=== PATIENT | female | born 1990 | race Caucasian/White ===

== ENCOUNTER 2023-10-10 15:27 | Inpatient (IN) | payer OTHER, SELFPAY ==
[2023-10-07 19:22] VITALS: BP 186/112
[2023-10-07 19:38] VITALS: BMI 50.5
[2023-10-07 19:41] VITALS: BP 158/82
[2023-10-07 20:00] VITALS: BP 145/81
[2023-10-07 20:04] LABS: % Basophils 0.2 % (0-2); % Immature Granulocytes 0.4 % (0-0.5); % Lymphocytes 11.7 % (20.5-51.1); % Neutrophils 80.7 % (42.2-75.2); Absolute Eosinophils 0.1 10^3/uL (0-0.7); Absolute Immature Granulocytes 0.1 10^3/uL (0-0.05); Absolute Lymphocytes 1.5 10^3/uL (1.2-3.4); Absolute Monocytes 0.8 10^3/uL (0.1-0.6); Absolute Neutrophils 10.3 10^3/uL (1.4-6.5); Hematocrit 31.1 % (37.0-47.0); Mean Corp Hgb Conc. 35.4 g/dL (33.0-37.0); Mean Corpuscular Hgb 30.1 pg (27.0-31.0); Mean Corpuscular Volume 85.2 fL (81.0-99.0); Mean Platelet Volume 9.5 fL (7.4-10.4); Nucleated Red Blood Cells % 0 %; Platelet Count 241 10^3/uL (130-400); Red Blood Cell Count 3.65 10^6/uL (4.20-5.40); Red Cell Dist. Width 12.4 % (11.5-14.5); White Blood Cell Count 12.8 10^3/uL (4.8-10.8)
[2023-10-07 20:05] LABS: Urine Albumin Trace (Neg - Trace); Urine Bilirubin Negative (Negative); Urine Character Clear (Clear); Urine Color Yellow; Urine Glucose Negative (Negative); Urine Ketone 3+ (Negative); Urine Leukocyte 2+ (Negative); Urine Nitrite Negative (Negative); Urine Occult Blood 2+ (Negative); Urine Specific Gravity 1.025 (<1.030); Urine Urobilinogen Negative (Neg - 1+)
[2023-10-07 20:11] LABS: Urine Squamous Cell >30 /LPF (Few); Urine White Cell 30-40 /HPF (0-5)
[2023-10-07 20:12] LABS: Urine Bacteria Moderate (Negative); Urine Red Blood Cell None Seen /HPF (0-2)
--- NOTE | 2023-10-07 20:43 | ED.GENMED ---
History of Present Illness
General
Chief Complaint: Back Pain
Source: patient
Exam Limitations: none
Time Seen by Provider: 10/07/23 19:29
Nursing documentation reviewed up to this point in time: agreed with
History of Present Illness
History of Present Illness:
33-year-old female nondrinker non-smoker prior LEEP procedure no prior abdominal surgery on control presents with back pain for about a week worse with eating associated with shortness of breath, upper abdominal pain, has really been noted you
to drink very much, no vomiting,
Past History
Past History
ED Past Medical History: None
ED Past Surgical History: Gynecological; Negative Bowel resection, Cardiac or Cholecystectomy
Social History
Tobacco: Non-smoker
Alcohol: None
Drug: None
Personal:
Living: with family
Employment: Employed
Family History
Family History: Negative CAD
Review of Systems
Review of Systems
All Other Systems: ROS reviewed and negative except as documented in HPI and ROS
Constitutional: Denies fever or fatigue
EENT: Reports no symptoms
Respiratory: Reports trouble breathing
ABD/GI: Reports abdominal pain
Musculoskeletal: Reports no symptoms
Phy Exam
Physical Exam
Physical Exam:
Physical Exam
General: 33 female looks uncomfortable
Neck: No jaundice
Heart: s1/s2 regular rate and rhythm, no murmur. equal radial pulses.
Lungs: no acute respiratory distress. clear bilaterally
Abdomen: Positive tenderness in the right upper abdomen
Neuro: alert and oriented. no focal neurological deficits
Skin: no rash
Psychiatric: well kept. interactive and cooperative
Extremities: no edema.
Course
Orders/Labs/Results
Orders:
Orders
10/07/23 19:42
Electrocardiogram (*1) Urgent
Reason for Study: Chest Pain
10/07/23 19:43
EKG- Treatment ONCE
Test Result ONCE
10/07/23 19:52
Complete Blood Count/With Diff Urgent
Urinalysis Reflex To Culture Urgent
Date Specimen was Collected: 10/07/23
Time Specimen was Collected: 19:43
Urine Microscopic Reflex Cult Urgent
Urine Culture Urgent
FLASH Source: U
Specimen Description:
Date Specimen was Collected: 10/07/23
Time Specimen was Collected: 19:43
10/07/23 20:15
CR Chest - 2 Views Urgent
Comment:
Reason For Exam: sob
US Periph Venous LOWER Ext RT Urgent
Comment:
Reason For Exam: swelling
10/07/23 20:16
Ketorolac [Toradol] 30 mg IV NOW STA
US Abdomen Complete/Upper Urgent
Comment:
Reason For Exam: pain
10/07/23 20:38
Comprehensive Metabolic Panel Urgent
D-Dimer Urgent
HCG, Serum Qualitative Screen Urgent
Lipase Urgent
Troponin I Urgent
10/07/23 22:29
HYDROmorphone [Dilaudid] 1 mg IV NOW STA
10/07/23 22:31
Ondansetron Injectable [Zofran] 4 mg IV NOW STA
10/07/23 22:32
CT Chest Pe Study Urgent
Comment:
Reason For Exam: spb ddimer up
Abnormal Lab Results
10/07/23 10/07/23
19:52 20:38
WBC 12.8 H 10^3/uL
(4.8-10.8)
RBC 3.65 L 10^6/uL
(4.20-5.40)
Hgb 11.0 L g/dL
(12.0-16.0)
Hct 31.1 L %
(37.0-47.0)
Abs Immat Gran (auto) 0.1 H 10^3/uL
(0-0.05)
Absolute Neuts (auto) 10.3 H 10^3/uL
(1.4-6.5)
Absolute Monos (auto) 0.8 H 10^3/uL
(0.1-0.6)
Neutrophils % 80.7 H %
(42.2-75.2)
Lymphocytes % 11.7 L %
(20.5-51.1)
D-Dimer 0.58 H ug/mlFEU
(0.00-0.50)
Chloride 110 H mmol/L
(98-107)
Glucose 113 H mg/dl
(70-99)
Urine Ketones 3+ A
(Negative)
Ur Occult Blood Reflex 2+ A
(Negative)
Leukocyte Esterase Rfl 2+ A
(Negative)
Urine WBC (Reflex) 30-40 A /HPF
(0-5)
Urine Bacteria (Reflex) Moderate A
(Negative)
10/07/23 19:52
10/07/23 20:38
Vital Signs
Initial and Last Documented VS:
Initial Vital Signs
Temp Pulse Resp BP Pulse Ox
98.2 F 98 24 186/112 100
10/07/23 19:22 10/07/23 19:22 10/07/23 19:22 10/07/23 19:22 10/07/23 19:22
Last Documented Vital Signs
Temp Pulse Resp BP Pulse Ox
98.2 F 64 10 131/75 98
10/07/23 19:22 10/07/23 23:00 10/07/23 23:00 10/07/23 23:00 10/07/23 23:00
MDM/Problems Addressed
Differential Diagnosis Includes:
Biliary colic pancreatitis DVT PE
MDM/Problems Addressed:
Abdominal pain chest pain
Chronic conditions affecting care:
Contraceptive use obesity
Acute Exacerbation and/or Progression of Chronic Illness:
Oral contraceptive obesity
*Radiology
Radiology exam reviewed: radiology read reviewed
*Pulse Oximetry
Patient hypoxic: no
*EKG
Interpreted by ED Provider?: Yes
Interpretation: abnormal
Comparison EKG: no comparison EKG present
Heart Rate: 78
Rate: normal
Rhythm: sinus
QRS Pattern: normal QRS
Ischemia: no ischemia
*Bandoleer Packer Interpretation
Rate: normal
Interpretation: normal
Heart Rate: 78
Rhythm: sinus
*Critical Care Note
Total Time (30-74mins, 75-104mins- exclusive of procedures): Not Applicable
Data Reviewed
Source: patient
Update Note
Update Note:
Update workup noted on reevaluation persistent pain in her right upper abdomen, ultrasound noted suspect biliary colic acute calculus cholecystitis source of her symptoms, D-dimer is up we will check CT to rule that out also get another review of
her right upper quadrant potentially will start on analgesics, likely admission
ED Attending Note
-
Portions of this chart may have been created with voice recognition software.� Occasional wrong word or��sound alike� substitutions may have occurred due to the inherent limitations of voice recognition software.
Discharge Plan
Departure
Prescriptions:
No Action
Oral Contraceptives
1 tab PO DAILY
Referrals:
NONE,* [Family Provider] -
Interventions
Interventions:
*Risk Screen - Suicide Last Done: 10/07/23 19:22
*General Assessment Last Done: 10/07/23 19:38
*Neglect/Abuse Screening Last Done: 10/07/23 19:22
ED- Fall Risk Assessment Last Done: 10/07/23 19:38
*ED COVID-19 Vaccine History Last Done: 10/07/23 19:38
ED- Cardiac Assessment Last Done: 10/07/23 19:39
ED-Musculoskeletal Assessment Last Done: 10/07/23 19:39
ED- Pulmonary Assessment Last Done: 10/07/23 19:39
Discharge Date and Time
Print Language: BELARUSIAN
[2023-10-07] MEDS: TORADOL 30 MG IV (21:22)
[2023-10-07 21:36] VITALS: BP 147/86
[2023-10-07 21:55] LABS: D-Dimer 0.58 ug/mlFEU (0.00-0.50)
[2023-10-07 22:01] VITALS: BP 128/80
[2023-10-07 22:09] LABS: ALT (SGPT) 24 U/L (0-35); AST (SGOT) 24 U/L (14-36); Alkaline Phosphatase 83 U/L (38-126); Blood Urea Nitrogen 14 mg/dl (7-17); Calcium 9.6 mg/dl (8.4-10.2); Carbon Dioxide 24 mmol/L (22-30); Chloride 110 mmol/L (98-107); Estimated Creatinine Clearance > 125 ml/min; Glucose 113 mg/dl (70-99); Lipase 34 U/L (23-300); Potassium 4.1 mmol/L (3.5-5.1); Sodium 140 mmol/L (135-145); Total Bilirubin 0.5 mg/dl (0.2-1.3); Total Protein 6.6 g/dl (6.3-8.2); eGFR > 60.00
[2023-10-07 22:11] LABS: HCG, Serum Qualitative Screen Negative
[2023-10-07 22:23] LABS: Troponin I < 0.012 ng/ml
[2023-10-07 23:00] VITALS: BP 131/75
[2023-10-07] MEDS: ZOFRAN 4 MG IV (23:08)
[2023-10-07] MEDS: DILAUDID 1 MG IV (23:08)
[2023-10-08] VITALS (13 sets, daily range): BP systolic 25–159; BP diastolic 61–96; BMI 49.0
--- NOTE | 2023-10-08 00:52 | HPS.HSE ---
Addendum entered and electronically signed by Andrea Cervantes MD 10/08/23 10:40:
I saw and examined the patient independently.
The Flight Simulator Teacher's note was reviewed and I agree with the note, assessment and plan except where noted below.
Comment: 33-year-old female with morbid obesity (BMI 49) presents with a 1 week history of right upper quadrant abdominal pain. Imaging, blood work, exam all consistent with acute cholecystitis.
Will plan for a laparoscopic cholecystectomy with cholangiogram in the OR today.
N.p.o., IV fluids, IV antibiotics.
Risks/Benefits/Alternatives, expected postoperative course and possible complications (bleeding, infection, injury to surrounding structures, acute/chronic pain) discussed at length. Patient wishes to proceed with surgery. All questions answered.
Consent obtained.
I spent roughly 60 minutes in total for the care of this patient today including direct patient care and counseling, reviewing labs, imaging, coordination of care, as well as documentation.
Original Note:
Family Physician
-
Family Physician: * NONE
Chief Complaint
-
Abdominal pain
History of Present Illness
a 33 year old female with prior LEEP procedure 15 years ago, no other abdominal surgeries�and currently on control. Present in ER today with a complain of upper abdominal pain and back pain. Symptoms started one week ago with right
upper�abdominal pain after eating, associated with nausea, sob and back pain. Pain increased with movement and patient can not get in comfortable position. Described her abdominal pain as pressure pain and back pain as sharp pain upper and middle
back. Patient took ibuprofen in home with no relief. Denies vomiting, diarrhea, constipation, urinary symptoms, chills, or any other symptoms. �
Medical History
Past Medical History
Past Medical History: Reports None
Past Surgical History: Reports Gynocological (LEEP procedure )
Social History
Tobacco: Non-smoker
Alcohol: None
Drug: None
Personal:
Living: With Family
Employment: Employed
Family History
Family History: Not pertinent
Allergies / Home Medications
Allergies reflects when Allergies were last updated in [email or web address].
Home Medications with original date entered in [email or web address]
Allergy/Medication List:
Patient Allergies
Allergy/AdvReac Type Severity Reaction Status Date / Time
No Known Allergies Allergy Verified 10/07/23 19:25
Home Medications Table - record
�Medication �Instructions �Recorded �Confirmed
Oral Contraceptives 1 tab PO DAILY 10/07/23
Review of Systems
-
History Source: Patient
A 12 point ROS was completed and negative except as noted: Yes
Constitutional: Reports No Symptoms
Respiratory: Reports Trouble Breathing (Sob)
Cardiac: Reports No Symptoms
Abdomen/GI: Reports Abdominal Pain (Epigastric and RT upper abdominal pain) and Nausea
: Reports No Symptoms
Musculoskeletal: Reports No Symptoms
Skin: Reports No Symptoms
Neurological: Reports No Symptoms
Physical Exam
Vital Signs
Vital Signs
Temp Pulse Resp BP Pulse Ox
98.2 F 74 19 149/82 97
10/07/23 19:22 10/08/23 00:45 10/08/23 00:45 10/08/23 00:00 10/08/23 00:45
Physical Exam
General: No Apparent Distress
Respiratory: Clear
Cardiac: Regular Rhythm
GI: Soft, Normal Bowel Sounds and Tender (Epigastric and RT upper abdominal pain )
Musculoskeletal: No Edema
Neuro: Awake and AO x 3
Laboratory Results
-
10/07/23 19:52
10/07/23 20:38
Laboratory Results
Total Bilirubin 0.5 mg/dl (0.2-1.3) 10/07/23 20:38
AST 24 U/L (14-36) 10/07/23 20:38
ALT 24 U/L (0-35) 10/07/23 20:38
Alkaline Phosphatase 83 U/L (38-126) 10/07/23 20:38
Troponin I < 0.012 ng/ml 10/07/23 20:38
Lipase 34 U/L (23-300) 10/07/23 20:38
Data Reviewed
-
Ultrasound: Discussed with Patient
Impression/Plan
-
Abdominal ultrasound shows gallbladder with sludge and stones ad well as mild thickness. Neg sonographic Connors`s sign. No finding to suggest biliary tract dilatation.
WBC 12.8 ��
IMPRESSION:
Acute Calculous Cholecystitis/ Biliary colic
PLAN:
Admit/ observation/med-surg Dr Villanueva (general surgery)
NPO�
IVF�
Abx Zosyn�
analgesics as needed
antiemetics as needed�
SOB with inspiration
Elevated D dimer------> CTPA is neg
Troponin is neg
Chest x-ray with No acute cardiopulmonary process.
DVT prophylaxis Lovenox sq�
Code status Full code
[2023-10-08] MEDS: DILAUDID 0.5 MG IV ×5 (01:55→23:57)
[2023-10-08] MEDS: ZOSYN 50 IV ×3 (01:55→20:36)
[2023-10-08] MEDS: FLUSH (NSS) 1 FLUSH IV (01:56)
[2023-10-08] MEDS: NSS 1000 IV ×2 (02:52→20:39)
--- NOTE | 2023-10-08 02:59 | PTCARENOTE ---
02:10 pt admit from ER, aaox3, RAC with abt infusing, NSS at 80ml/hr. Pt vs stable, denies abd pain at this time, diet and care plan reviewed, oriented to unit.
[2023-10-08] MEDS: DILAUDID 0.25 MG IV (04:00)
--- NOTE | 2023-10-08 09:00 | W.PN.GS2 ---
Addendum entered and electronically signed by Andrea Cervantes MD 10/08/23 10:41:
See addendum in H&P.
Agree, 33-year-old female with acute cholecystitis. Plan for or today.
Original Note:
Today's Communication / Plan
-
Plan for laparoscopic cholecystectomy
Assessment / Plan
-
33-year-old female presented with acute upper abdominal pain with intermittent back pain.
Abdominal ultrasound: Gallbladder with sludge and stones as well as mild wall thickness. Negative sonographic Connors's sign
Acute cholecystitis
-N.p.o.
-IV Zosyn
-IV fluids
-Laparoscopic cholecystectomy plan for today
Discussed the procedure with patient at bedside. Reviewed indications for cholecystectomy. Patient in agreement to proceed with surgery for definitive management. Laparoscopic cholecystectomy was reviewed in detail including the operative
technique and and potential operative findings with their management. Discussed benefits of surgery and risks such as but not limited to bleeding, infectious or wound related complications, iatrogenic injury to surrounding viscera.
We discussed the variable timeframe of postoperative recovery and hospitalization pending operative findings. Patient verified understanding.
Time Spent
Total Time Spent with Patient (in minutes): 15
Subjective Data
-
Date of Service: October 08, 2023
Interval events: Continues to have right upper quadrant abdominal pain. Denies nausea/vomiting
Objective Data
-
Intake and Output
10/07/23 10/08/23 10/09/23
06:59 06:59 06:59
Intake Total 400 / 400
Balance 400 / 400
Intake:
IV fluids (Total) 400 / 400
Other:
Number of approximated LARGE 2
amounts of urine
Vital Signs
Temp Pulse Resp BP Pulse Ox
98.8 F 74 18 140/77 97
10/08/23 07:30 10/08/23 07:30 10/08/23 07:30 10/08/23 07:30 10/08/23 07:30
Lab Results
10/07/23 19:52
10/07/23 20:38
Calcium 9.6 mg/dl (8.4-10.2) 10/07/23 20:38
Total Bilirubin 0.5 mg/dl (0.2-1.3) 10/07/23 20:38
AST 24 U/L (14-36) 10/07/23 20:38
ALT 24 U/L (0-35) 10/07/23 20:38
Alkaline Phosphatase 83 U/L (38-126) 10/07/23 20:38
Total Protein 6.6 g/dl (6.3-8.2) 10/07/23 20:38
Albumin 4.0 g/dl (3.5-5.0) 10/07/23 20:38
Physical Exam
-
General: Comfortable
Abdomen: Soft, tenderness on right upper abdomen and epigastric region, obese
--- NOTE | 2023-10-08 11:03 | CM ---
CM following re: discharge planning.
Reviewed pt's chart, met with pt.
Pt is a 33 year old female, admitted with OBS status and primary dx of Acute Cholecystitis. OBS status explained to the pt, OBS letter signed, placed on chart, pt has a copy.
Pt reports she lives with and 2 children in a 2SH, 2 steps to enter. Pt described herself as independent in all areas [place] [employer], drives, works.
Per Surgery, Laparoscopic cholecystectomy plan for today.
PCP: Pt stated she does not have PCP, declined to have a list of PCP offices.
Pharmacy: [facility].
D/C plan: home with anticipated no needs. to transport at discharge.
CM will follow with discharge plan updates as hospitalization progresses
--- NOTE | 2023-10-08 13:12 | W.SUR.PREOP ---
Pre-Operative Surgical Note
-
I have examined this patient prior to the performance of the scheduled procedure.
The patient's condition is unchanged from the time of the current History and
Physical and the patient is able to undergo the scheduled procedure.
--- NOTE | 2023-10-08 16:08 | W.IMMPOSTOP ---
Surgical Immed Post Op Note
-
Primary Surgeon: Andrea Cervantes MD
Assisting Surgeon: None
Pre-op Diagnosis: Acute cholecystitis
Post-op Diagnosis: Gangrenous cholecystitis
Procedure Performed: Laparoscopic cholecystectomy with cholangiogram
Anesthesia Type: General
Specimen / Cultures: Gallbladder and contents
Estimated Blood Loss: 31 cc
Complications: None
Operative Findings: Gangrenous cholecystitis with distended and thickened gallbladder wall. The gallbladder was evacuated using a suction needle. We did attempt to dissect the hepatocystic triangle but due to the inflammation it was difficult to
identify the true plane so we elected to convert to a top-down cholecystectomy. The gallbladder was entered with evacuation of thick somewhat purulent looking bile. We were able to dissect the gallbladder down to the neck and after removing all
the stones, the ostium of the cystic duct was identified and cannulated with a cholangiocatheter that it been introduced through a separate stab incision using a Melvin Quispe. Cholangiogram was performed which showed normal biliary anatomy and
no distal filling defects. The cystic duct/infundibulum was ligated with a 0 PDS Endoloop and the gallbladder was divided above this. The gallbladder and stones were removed in 2 separate Endo Catch bags through the 12 mm epigastric port. A 19
Luxembourgish round Js drain was introduced through the right lateralmost port and secured to the skin with a 2-0 nylon.
POST OP PLAN:
Imaging: None
Labs: Routine AM
Diet: clears
Analgesia: Tylenol 650mg q6 Zev, Lizzette 5mg q6 PRN, Dilaudid 0.5mg q2h PRN
Neuro/vascular checks: q4h
AC/AP: Hold Therapeutic AC, Ok for DVT PPx
Activity: Ad Angie
Wound/Incisions/Drains: Routine, IAM to bulb suction
Abx: Anticipate antibiotics x 4 days.
Dispo: RNF, anticipate discharge home at the earliest 10/10/2023.
[2023-10-08] MEDS: ZOSYN IV (17:32)
--- NOTE | 2023-10-08 18:19 | PTCARENOTE ---
Received patient from PACU via bed around 1715 in stable condition. Patient c/o pain 10/12. Dilaudid 0.5 mg given as ordered. 5 lap sites with surgical adhesive JANES CDI. Right IAM drain with serosanguineous drainage. IS encouraged. Call perez in reach.
Patient DTV.
--- NOTE | 2023-10-08 19:45 | OR.RPT ---
Operative Report
Operative Report
Patient Name: Su Osorio
: 1990
Date of Operation: 10/08/2023
Preoperative Diagnosis: Acute cholecystitis
Postoperative Diagnosis: Gangrenous cholecystitis
Procedure(s):
Laparoscopic Cholecystectomy with Cholangiogram
Surgeon(s):
Dr. Cervantes
Metal Sprayer Production(s):
JO Bautista
Anesthesia: General
Estimated Blood Loss: 31 cc
Urine Output: None
Drains/Lines/Implants: 19 Belgian round Js drain in the gallbladder fossa
Specimens:
1. Gallbladder and contents
HPI/Surgical Indications:
This is a 33-year-old female with morbid obesity who presents with a 1 week history of postprandial right upper quadrant abdominal pain. Exam, labs and imaging are consistent with acute cholecystitis. Risks/Benefits/Alternatives were discussed at
length, and the patient agreed to proceed with surgery.
Operative Findings: Gangrenous cholecystitis with distended and thickened gallbladder wall. The gallbladder was evacuated using a suction needle. We did attempt to dissect the hepatocystic triangle but due to the inflammation it was difficult to
identify the true plane so we elected to convert to a top-down cholecystectomy. The gallbladder was entered with evacuation of thick somewhat purulent looking bile. We were able to dissect the gallbladder down to the neck and after removing all
the stones, the ostium of the cystic duct was identified and cannulated with a cholangiocatheter that it been introduced through a separate stab incision using a Melvin Quispe. Cholangiogram was performed which showed normal biliary anatomy and
no distal filling defects. The cystic duct/infundibulum was ligated with a 0 PDS Endoloop and the gallbladder was divided above this. The gallbladder and stones were removed in 2 separate Endo Catch bags through the 12 mm epigastric port. A 19
Belgian round Js drain was introduced through the right lateralmost port and secured to the skin with a 2-0 nylon.
Procedure Description:
The patient was brought to the Operating Room and placed in the supine position with one the arms out and a footboard placed. Following uneventful induction of general endotracheal anesthesia, an orogastric tube was placed. The abdomen was prepped
and draped in the usual sterile fashion. A timeout was performed confirming the procedure, consent, and that IV antibiotics were infused and sequential compression devices were confirmed to be on. The abdomen was entered using a left subcostal
Veress technique which required 1 pass followed by a right upper quadrant 5 mm Optiview trocar. Pneumoperitoneum to 15 mmHg pressure was obtained without difficulty and we confirmed that no injury had occurred during our entry. The patient was
positioned in steep reverse Trendelenberg and rotated with the right side up slightly. Two 5mm trocars were then placed along the right subcostal margin, followed by pulmonary port in the epigastrium. The gallbladder was notably distended so was
emptied using a decompressing needle through the fundus of the gallbladder with evacuation of bile/hydrops before A locking grasping forceps was placed on the fundus of the gallbladder where it was then retracted cephalad and to the right. There
was significant adhesions over the anterior plate of the gallbladder particularly in the lower third, these were lysed using electrocautery and blunt dissection as we moved towards the presumed hepatocystic triangle the tissues encountered were very
thick and inflamed and was difficult to identify any real safe plane of dissection. At this point we elected to convert to a top-down cholecystectomy. The gallbladder was entered and a significant amount of bile was evacuated. Once we are on the
true wall of the gallbladder we were able to extend this down towards the a infundibulum. The back wall of the gallbladder was opened and the there was several very large mixed/brown gallstones. In order to not lose these, I passed a specimen bag
into the abdomen and tediously passed each stone into this for collection. I also placed a 4 x 4 into the gallbladder fossa to help collect any loose stones and debris. We continued our dissection proximally on the gallbladder till we were able to
identify the cystic duct lumen. We also identified the cystic artery which was cauterized and ligated using a laparoscopic bipolar energy device. I then passed a cholangiocatheter through a separate right upper quadrant stab incision using a
Melvin Quispe device. I then threaded the catheter through the cystic duct and clamped in place using a procedure grasper. A C-arm was draped and brought into the field. An intra-operative cholangiogram was performed and was noted to have:
No filling defects in the biliary tree
No significant biliary dilation
Brisk flow of contrast into the duodenum
Normal biliary anatomy
The catheter was then removed and the cystic duct was controlled with a 0 PDS Endoloop as distally as we could. Again, given how inflamed the cystic triangle was I did not feel any further dissection would be safe. After feeling confident that the
duct had been obliterated the remaining cuff of the gallbladder was divided using the bipolar energy device and the gallbladder with 3 remaining gallstones was placed into a separate Endo Catch bag. The specimens were then removed through the
epigastric 12 port. There was obviously significant spillage of bile and stones during this case though all the stones appeared fairly large and were removed. The right upper quadrant was then flooded with irrigation and suctioned until clear.
Hemostasis was achieved. A 19 Belgian round Js drain was then introduced through the right most lateral laparoscopic port and passed along the right colic gutter and underneath the right lobe of the liver across our surgical bed. This was
secured at the skin with a 2-0 nylon suture. After ensuring our specimen as well as our 4 x 4 Ray-Gabe were removed the 12 mm port was closed using a 0 PDS [id number] with the help of a Melvin Quispe device. The gallbladder bed was inspected
and excellent hemostasis was assured. There was no sign of any bile leakage. All remaining trocars were then removed and the pneumoperitoneum was evacuated. All trocar sites were closed at the skin level using 4-0 Monocryl followed by Dermabond.
Overall, the patient tolerated the procedure well and was taken to the Recovery Room postoperatively in stable condition.
I was the attending physician and performed the procedure with assistance from the EXTERMINATOR TERMITE above. I was present for all portions of the case
Andrea Cervantes MD
[2023-10-08] MEDS: LOVENOX 40 MG SC (20:35)
[2023-10-09] MEDS: ZOSYN 50 IV ×4 (01:08→20:22)
[2023-10-09 03:03] VITALS: BP 141/74
[2023-10-09] MEDS: NSS 1000 IV (03:49)
[2023-10-09 07:41] VITALS: BP 121/69
--- NOTE | 2023-10-09 08:17 | W.PN.GS2 ---
Addendum entered and electronically signed by Andrea Cervantes MD 10/09/23 16:05:
I saw and examined the patient independently.
The resident's note was reviewed and I agree with the note, assessment and plan except where noted below.
Comment: 33-year-old female postoperative day 1 status post laparoscopic cholecystectomy for gangrenous cholecystitis. IAM with serosanguineous output. Blood work reassuring though hemoglobin 9.6 from 11.
Okay for regular diet.
Continue antibiotics day 2/4
Maintain IAM to bulb suction, anticipate removing it at discharge provided output remains serous.
Will obtain labs for tomorrow.
Original Note:
Today's Communication / Plan
-
Maintain IAM drain
Continue clear fluids
Possible discharge tomorrow pending return of bowel function
Assessment / Plan
-
33-year-old female s/p laparoscopic cholecystectomy POD #1 presented with acute upper abdominal pain with intermittent back pain.
Abdominal ultrasound: Gallbladder with sludge and stones as well as mild wall thickness. Negative sonographic Connors's sign
Acute cholecystitis
-Significant improvement in subjective abdominal pain
-Continue clear liquid diet for now-awaiting ROBF
-IV Zosyn day 2/
-Maintain IAM drain for now-serosanguineous discharge
-Likely discharge tomorrow
Discussed the plan with patient at bedside. Patient verified understanding.
Time Spent
Total Time Spent with Patient (in minutes): 15
Subjective Data
-
Date of Service: October 09, 2023
Interval events: significant improvement in abdominal pain. Denies nausea/vomiting. No flatus and stools as of now
Objective Data
-
Intake and Output
10/08/23 10/09/23 10/10/23
06:59 06:59 06:59
Intake Total 400 / 400 2119
Output Total 90 / 90
Balance 400 / 400 2029
Intake:
Oral fluids 450 / 450
IV fluids (Total) 400 / 400 1520 / 1520
IV piggybacks 150 / 150
Output:
Drain Output (Total)
Right Abdomen Donis-Bill
Other:
Number of approximated MODERATE 3
amounts of urine
Number of approximated LARGE 2
amounts of urine
Vital Signs
Temp Pulse Resp BP Pulse Ox
98.9 F 82 18 121/69 94
10/09/23 07:41 10/09/23 07:41 10/09/23 07:41 10/09/23 07:41 10/09/23 07:41
Calcium 9.6 mg/dl (8.4-10.2) 10/07/23 20:38
Total Bilirubin 0.5 mg/dl (0.2-1.3) 10/07/23 20:38
AST 24 U/L (14-36) 10/07/23 20:38
ALT 24 U/L (0-35) 10/07/23 20:38
Alkaline Phosphatase 83 U/L (38-126) 10/07/23 20:38
Total Protein 6.6 g/dl (6.3-8.2) 10/07/23 20:38
Albumin 4.0 g/dl (3.5-5.0) 10/07/23 20:38
Physical Exam
-
General: Comfortable
Abdomen: Soft, mild tenderness near the incision sites, obese. Incision clean dry intact
[2023-10-09] MEDS: TYLENOL 650 MG PO ×2 (08:43→16:33)
[2023-10-09] MEDS: LOVENOX 40 MG SC ×2 (08:44→20:22)
[2023-10-09 10:11] LABS: Hematocrit 27.3 % (37.0-47.0); Hemoglobin 9.6 g/dL (12.0-16.0); Mean Corp Hgb Conc. 35.2 g/dL (33.0-37.0); Mean Corpuscular Hgb 30.8 pg (27.0-31.0); Mean Corpuscular Volume 87.5 fL (81.0-99.0); Mean Platelet Volume 9.6 fL (7.4-10.4); Platelet Count 216 10^3/uL (130-400); Red Blood Cell Count 3.12 10^6/uL (4.20-5.40); Red Cell Dist. Width 12.4 % (11.5-14.5); White Blood Cell Count 10.9 10^3/uL (4.8-10.8)
[2023-10-09 11:07] LABS: ALT (SGPT) 33 U/L (0-35); AST (SGOT) 33 U/L (14-36); Albumin 3.4 g/dl (3.5-5.0); Alkaline Phosphatase 87 U/L (38-126); Blood Urea Nitrogen 10 mg/dl (7-17); Calcium 8.5 mg/dl (8.4-10.2); Carbon Dioxide 22 mmol/L (22-30); Chloride 106 mmol/L (98-107); Estimated Creatinine Clearance > 125 ml/min; Glucose 162 mg/dl (70-99); Potassium 3.4 mmol/L (3.5-5.1); Sodium 136 mmol/L (135-145); Total Bilirubin 0.7 mg/dl (0.2-1.3); eGFR > 60.00
[2023-10-09 11:19] VITALS: BP 113/76
[2023-10-09 15:04] VITALS: BP 124/71
--- NOTE | 2023-10-09 15:08 | CM ---
Discharge Plan of Care: Anticipate home with no needs unless drain remains in place then offer VN.
[2023-10-09] MEDS: DILAUDID 0.25 MG IV (21:29)
[2023-10-09 23:28] VITALS: BP 121/68
[2023-10-10] MEDS: FLUSH (NSS) 1 FLUSH IV (02:05)
[2023-10-10] MEDS: ZOSYN 50 IV ×3 (02:05→14:20)
[2023-10-10] MEDS: TYLENOL 650 MG PO (02:10)
[2023-10-10 06:50] LABS: Hematocrit 26.3 % (37.0-47.0); Hemoglobin 9.1 g/dL (12.0-16.0); Mean Corp Hgb Conc. 34.6 g/dL (33.0-37.0); Mean Corpuscular Hgb 30.5 pg (27.0-31.0); Mean Corpuscular Volume 88.3 fL (81.0-99.0); Mean Platelet Volume 9.5 fL (7.4-10.4); Platelet Count 230 10^3/uL (130-400); Red Blood Cell Count 2.98 10^6/uL (4.20-5.40); Red Cell Dist. Width 12.4 % (11.5-14.5); White Blood Cell Count 7.9 10^3/uL (4.8-10.8)
[2023-10-10 07:21] LABS: ALT (SGPT) 38 U/L (0-35); AST (SGOT) 32 U/L (14-36); Alkaline Phosphatase 79 U/L (38-126); Blood Urea Nitrogen 11 mg/dl (7-17); Calcium 8.2 mg/dl (8.4-10.2); Carbon Dioxide 26 mmol/L (22-30); Chloride 106 mmol/L (98-107); Estimated Creatinine Clearance > 125 ml/min; Glucose 91 mg/dl (70-99); Sodium 136 mmol/L (135-145); Total Bilirubin 0.5 mg/dl (0.2-1.3); Total Protein 5.4 g/dl (6.3-8.2); eGFR > 60.00
[2023-10-10 07:29] LABS: Potassium 3.6 mmol/L (3.5-5.1)
--- NOTE | 2023-10-10 07:34 | W.PN.GS2 ---
Today's Communication / Plan
-
d/c home
OP fu in 2-3 weeks
Assessment / Plan
-
33-year-old female s/p laparoscopic cholecystectomy for gangrenous cholecystitis POD #2 presented initially with acute upper abdominal pain with intermittent back pain.
Abdominal ultrasound: Gallbladder with sludge and stones as well as mild wall thickness. Negative sonographic Connors's sign
Acute cholecystitis
-Significant improvement in subjective abdominal pain
-Tolerating regular diet-awaiting for BM
-repeat cbc before d/c
-IV Zosyn day /
-Plan to remove IAM drain before d/c today
Answered all questions. Patient verified understanding.
Time Spent
Total Time Spent with Patient (in minutes): 15
Subjective Data
-
Date of Service: October 10, 2023
Interval events: very minimal incisional site abdominal pain. Denies nausea/vomiting. Able to pass flatus, no BM postop.
Objective Data
-
Intake and Output
10/09/23 10/10/23 10/11/23
06:59 06:59 06:59
Intake Total 2120 / 2120 1000 / 1000
Output Total 90 / 90 70 / 70
Balance 2029 930 / 930
Intake:
Oral fluids 450 / 450 900 / 900
IV fluids (Total) 1520 / 1520
IV piggybacks 150 / 150 100 / 100
Output:
Drain Output (Total) 90 / 90 70 / 70
Right Abdomen Donis-Bill 90 / 90 70 / 70
Other:
Number of approximated MODERATE 3 2
amounts of urine
Vital Signs
Temp Pulse Resp BP Pulse Ox
98.8 F 78 20 121/68 94
10/09/23 23:28 10/09/23 23:28 10/09/23 23:28 10/09/23 23:28 10/09/23 23:28
Lab Results
10/10/23 05:56
10/10/23 05:56
Calcium 8.2 mg/dl (8.4-10.2) L 10/10/23 05:56
Total Bilirubin 0.5 mg/dl (0.2-1.3) 10/10/23 05:56
AST 32 U/L (14-36) 10/10/23 05:56
ALT 38 U/L (0-35) H 10/10/23 05:56
Alkaline Phosphatase 79 U/L (38-126) 10/10/23 05:56
Total Protein 5.4 g/dl (6.3-8.2) L 10/10/23 05:56
Albumin 3.0 g/dl (3.5-5.0) L 10/10/23 05:56
Physical Exam
-
General: Comfortable
Abdomen: Soft, mild tenderness near the incision sites, obese. Incision clean dry intact. IAM drain-serosanguineous discharge
[2023-10-10 07:45] VITALS: BP 118/76
[2023-10-10] MEDS: LOVENOX SC (08:19)
--- NOTE | 2023-10-10 08:35 | W.PN.GS2 ---
Today's Communication / Plan
-
TXA, repeat hemoglobin.
If all stable will DC later today off antibiotics.
Assessment / Plan
-
33-year-old female s/p laparoscopic cholecystectomy for gangrenous cholecystitis POD #3, hemoglobin drifting slowly but otherwise expected postoperative course.
-Will give 1 g TXA, repeat CBC this afternoon. If hemoglobin stable or improved we will plan for discharge.
-Will continue Zosyn while admitted. No need for antibiotics on discharge.
-IAM removed at bedside today.
Time Spent
Total Time Spent with Patient (in minutes): 20
Subjective Data
-
Date of Service: October 10, 2023
Interval Events:
No acute events overnight. Slept well. Pain Controlled. Denies Nausea/Vomiting, +bowel function. Tolerating diet.
Objective Data
-
Intake and Output
10/09/23 10/10/23 10/11/23
06:59 06:59 06:59
Intake Total 2120 / 2120 1000 / 1000
Output Total 90 / 90 70 / 70
Balance 2029 / 2029 930 / 930
Intake:
Oral fluids 450 / 450 900 / 900
IV fluids (Total) 1520 / 1520
IV piggybacks 150 / 150 100 / 100
Output:
Drain Output (Total) 90 / 90 70 / 70
Right Abdomen Donis-Bill 90 / 90 70 / 70
Other:
Number of approximated MODERATE 3 2
amounts of urine
Vital Signs
Temp Pulse Resp BP Pulse Ox
98.4 F 68 19 118/76 94
10/10/23 07:45 10/10/23 07:45 10/10/23 07:45 10/10/23 07:45 10/10/23 07:45
Lab Results
10/10/23 05:56
Calcium 8.2 mg/dl (8.4-10.2) L 10/10/23 05:56
Total Bilirubin 0.5 mg/dl (0.2-1.3) 10/10/23 05:56
AST 32 U/L (14-36) 10/10/23 05:56
ALT 38 U/L (0-35) H 10/10/23 05:56
Alkaline Phosphatase 79 U/L (38-126) 10/10/23 05:56
Total Protein 5.4 g/dl (6.3-8.2) L 10/10/23 05:56
Albumin 3.0 g/dl (3.5-5.0) L 10/10/23 05:56
Physical Exam
-
GENERAL/NEURO: Awake, Alert, no distress
CHEST: Unlabored breathing on RA
ABDOMEN: Soft, Non-Tender, Non-Distended, incisions clean dry and intact. IAM with serous output
[2023-10-10] MEDS: TRANEXAMIC ACID 110 MG IV (10:01)
--- NOTE | 2023-10-10 13:19 | CM ---
Chart reviewed and patient is for possible home today, no needs.
Plan; Home no needs.
[2023-10-10 14:59] LABS: Hematocrit 27.6 % (37.0-47.0); Hemoglobin 9.8 g/dL (12.0-16.0); Mean Corp Hgb Conc. 35.5 g/dL (33.0-37.0); Mean Corpuscular Hgb 29.9 pg (27.0-31.0); Mean Corpuscular Volume 84.1 fL (81.0-99.0); Mean Platelet Volume 9.1 fL (7.4-10.4); Platelet Count 267 10^3/uL (130-400); Red Blood Cell Count 3.28 10^6/uL (4.20-5.40); Red Cell Dist. Width 12.1 % (11.5-14.5); White Blood Cell Count 8.2 10^3/uL (4.8-10.8)
[2023-10-10 15:45] VITALS: BP 137/80
--- NOTE | 2023-10-12 13:17 | W.DCSUMMARY ---
Discharge Summary
Discharge Data
Date of Admission: 10/08/23
Date of Discharge: 10/10/23
-
Pending Results: No
Hospital Course
33-year-old female with morbid obesity (BMI 49) presents with a 1 week history of right upper quadrant abdominal pain. Imaging, blood work, exam all consistent with acute cholecystitis. She was taken to the operating room for laparoscopic
cholecystectomy with gangrenous cholecystitis noted intraoperatively and IAM left in place. Acute anemia was noted post operatively and she was administered a dose of TXA with subsequent stability in laboratory studies. IAM drainage remained
nonbilious and the drain was removed prior to discharge. Diet was able to be advanced and well tolerated prior to discharge with good pain control. Outpatient follow up in the coming weeks planned for further evaluation.
Discharge Plan
-
Patient Disposition: Home (Routine Discharge)
Discharge Diagnosis/Procedures: Acute cholecystitis status post laparoscopic cholecystectomy
Condition: Good
Diet: As tolerated
Activity: No strenuous activity
Driving Restrictions: No driving for 24 hours
Bathing Restrictions: OK to Shower
Activity Restrictions/Additional Instructions:
Instructions following Laparoscopic cholecystectomy
Please call [phone] if you have any questions or concerns after your surgery.
Wound Care:
Your incisions are covered with skin glue which will come off on it�s own in 5-10 days.
It is ok to shower the day after your surgery. Do not scrub the incisions, let soap and water wash over them and pat dry.
� Bruising around your incisions is normal.
� Using ice packs will help minimize this swelling.
� No swimming or soaking incisions for 1 week.
� Your stitches will dissolve and do not need to be removed.
Urinary retention:
If you are unable to urinate 6-8 hours after your surgery, please call [phone] to discuss further management.
Activity:
No heavy lifting more than 15 pounds for the next 3 weeks, then you may gradually lift heavier objects as tolerated by discomfort. Otherwise activity as tolerated by your comfort level.
Pain Management:
Use Tylenol, ibuprofen and ice packs to treat your pain.
� You may take 650 milligrams of Tylenol (Max 3 grams per day) every 6 hours, and 600 mg of ibuprofen also every 6 hours. (you can alternate them every 3 hours)
� You may use an ice pack to your incision as needed.
� If you still have pain not controlled by these measures, take your prescription pain medication as prescribed.
Medications:
You may resume your home medications.
Bowel Medications:
Prescription pain medication can make you constipated. If you take this medication, also take colace 100 mg twice daily (this is over the counter). If this is not sufficient, you may take Miralax (polyethylene glycol) to help move your bowels.
Diet:
After your procedure, there are no dietary restrictions. You may notice loose stools for up to 4 weeks after surgery with fatty meals, if this is the case you may have to adjust your diet as needed.
Driving restrictions:
No driving if you are taking prescription pain medication or if you think your normal reaction time and attentiveness has been slowed by your surgery.
Things to Look out for:
Worsening Abdominal pain, redness or drainage from incision
Call Doctor for:
Please call if you notice worsening redness or drainage from incision(s) lasting longer than 5 days after your surgery, any foul-smelling drainage from the incision, pain not controlled by pain medications, persistent nausea and vomiting, or for any
fevers greater than 101.3 F. The number for questions/concerns is [phone]
Follow-up:
Follow-up appointment will be scheduled with your surgeon in 3-4 weeks. Please call prior to your appointment if you have any questions or concerns. [phone]
Referrals:
Andrea Cervantes MD [Active] - in two to four weeks
Prescriptions:
New
acetaminophen [acetaminophen] 325 mg tablet
650 mg PO Q6HPRN PRN (Reason: mild pain) Qty: 14 0RF
tramadol 50 mg tablet
25 mg PO Q6HPRN PRN (Reason: severe pain/breakthrough pain) Qty: 8 0RF
ibuprofen 600 mg tablet
600 mg PO Q6H PRN (Reason: pain) Qty: 14 0RF
Continued
Oral Contraceptives
1 tab PO DAILY
Discharge Orders:
Discharge Patient (As Directed); Ordered 10/10/23
Ordered By: Andrea Cervantes
Discharge Date and Time
Discharge Date/Time: 10/10/23 16:51
Print Language: MACEDONIAN
== END 2023-10-10 16:51 | disposition home or self-care (01) | DRG 418 ==
LOC: 2 SOUTH 15:27
PROVIDERS: Surgery; ADMITTING PHYSICIAN Surgery; EMERGENCY PHYSICIAN Emergency Medicine
PROC: BF502Z0 Other Imaging of Bile Ducts using Fluorescing Agent, Intraoperative (ICD-10-PCS; 2023-10-08)
PROC: 0FT44ZZ Resection of Gallbladder, Percutaneous Endoscopic Approach (ICD-10-PCS; 2023-10-08)
DX: K80.00 Calculus of gallbladder with acute cholecystitis without obstruction (principal); Z68.42 Body mass index [BMI] 45.0-49.9, adult; K82.A1 Gangrene of gallbladder in cholecystitis; E66.01 Morbid (severe) obesity due to excess calories; D64.9 Anemia, unspecified
CPT/HCPCS: 88304; 71046; 71275; 74300; 76000; 76700; 80053; 81003; 81015; 83690; 84484; 84703; 85025; 85027; 85379; 87086; 93005; 93971; 96374; 96375; 99285; C1776; Q9967